=== PATIENT | male | born 1965 | race Caucasian/White ===

== ENCOUNTER → 2020-12-07 11:56 | Outpatient (BNVA) | payer OTHER, SELFPAY | PROVIDERS: Family Provider Nurse Practitioner Family; PCP Nurse Practitioner Family; Visit Provider Dermatology | DX: Z01.89 Encounter for other specified special examinations (principal) ==

== ENCOUNTER → 2021-05-31 09:26 | Outpatient (BNVA) | payer SELFPAY | PROVIDERS: Family Provider Nurse Practitioner Family; PCP Nurse Practitioner Family; Visit Provider Dermatology | DX: Z01.89 Encounter for other specified special examinations (principal) ==

== ENCOUNTER → 2021-08-29 12:08 | Outpatient (BNVA) | payer OTHER, SELFPAY | PROVIDERS: Family Provider Nurse Practitioner Family; PCP Nurse Practitioner Family; Visit Provider Nurse Practitioner Family | DX: M79.601 Pain in right arm (principal); M25.50 Pain in unspecified joint | CPT/HCPCS: 80053; 84550; 85651; 86038; 86140; 86200; 86431 ==

== ENCOUNTER 2021-08-30 06:13 | Outpatient (CLI) | payer OTHER, SELFPAY ==
--- NOTE | 2021-08-30 06:30 | USCV_ITS ---
Jose Christine Age: 56 Gender: M : 1965 Exam Date: 08/30/2021 06:27 Ordering Phys: Chioma Lazo GOAL UMPIRE Technologist: FELICIA Exam Location: [facility] [place] Indication: RUE PAIN HISTORY: Upper extremity pain. PROCEDURES: Venous duplex imaging was performed in only the right upper extremity. The following venous structures were evaluated: internal jugular vein, subclavian vein, axillary vein, and brachial veins. In addition, the basilic vein, cephalic vein, radial vein, and ulnar vein. Serial compression, augmentation maneuvers, and spectral Doppler flow evaluation were performed. FINDINGS: The veins of the right upper extremity are readily compressible with normal venous flow dynamics including spontaneous flow, respiratory phasic variation and augmentation. CONCLUSIONS No evidence of thrombus of the right upper extremity veins. Russ Zelaya MD (Electronically Signed) Final Date: 30 August 2021 09:34 S
== END 2021-08-30 06:14 | disposition home or self-care (01) ==
LOC: RAD 06:14
PROVIDERS: PCP Nurse Practitioner Family; Visit Provider Nurse Practitioner Family
DX: M79.601 Pain in right arm (principal)
CPT/HCPCS: 93971

== ENCOUNTER → 2021-09-06 08:45 | Outpatient (BNVA) | payer OTHER, SELFPAY | PROVIDERS: PCP Nurse Practitioner Family; Visit Provider Nurse Practitioner Family | DX: R74.8 Abnormal levels of other serum enzymes (principal); E11.9 Type 2 diabetes mellitus without complications; E78.5 Hyperlipidemia, unspecified | CPT/HCPCS: 80076; 82977; 83915; 86705; 86706; 86709; 86803; 87340 ==

== ENCOUNTER → 2021-09-23 11:36 | Outpatient (BNVA) | payer OTHER, SELFPAY | PROVIDERS: PCP Nurse Practitioner Family; Visit Provider Nurse Practitioner Family | DX: R74.8 Abnormal levels of other serum enzymes (principal); M54.50 Low back pain, unspecified; M54.6 Pain in thoracic spine; R07.81 Pleurodynia; M25.50 Pain in unspecified joint | CPT/HCPCS: 80053; 81000; 82607; 83735 ==

== ENCOUNTER 2021-09-26 07:43 | Outpatient (CLI) | payer OTHER, SELFPAY ==
--- NOTE | 2021-09-26 08:00 | US_ITS ---
WS: [id number] Complete ABDOMINAL ULTRASOUND HISTORY: R74.8 - Abnormal levels of other serum enzymes COMPARISON: None available. Liver: 15.7 cm in length. Liver is top normal size. Mild coarsened echotexture throughout. The veins and bile ducts are still visualized. There are a few areas of low attenuation throughout the liver ad jacent to the gallbladder. Largest geographic pattern of decreased attenuation measures 4.2 x 2.2 x 2 .3 cm. Typical location for focal fatty sparing. Portal Vein: Normal hepatopetal flow with monophasic waveform. Gallbladder: Normally distended with no gallstones, wall thickening or pericholecystic fluid. Gallbladder wall thickness: 0.3 cm. Pancreas: Normal size and echogenicity. CBD: 0.4 cm. Right kidney: 10.0 cm x 6.1 cm x 5.2 cm. Normal size. No hydronephrosis. Simple cyst inferior pole m easures 1.1 x 1.5 x 1.2 cm. No solid mass. Cortical thickness is normal. Left kidney: 10.8 cm x 5.4 cm x 5.3 cm. No mass, cortical thickening or hydronephrosis. Spleen: Normal size and echogenicity. Abdominal aorta and IVC are within normal limits. No ascites. US/US abdomen complete* [id number] IMPRESSION: 1. Geographic pattern of decreased attenuation within the central liver adjace nt to the hilum. Most likely this is focal fatty sparing in the liver with stea tosis. Due to the geographic pattern and extent of involvement consider follow- up liver CT with arterial and venous phases. 2. Hepatic steatosis. 3. Normal gallbladder. 4. Simple cyst inferior pole RIGHT kidney.
== END 2021-09-26 07:44 | disposition home or self-care (01) ==
LOC: RAD 07:44
PROVIDERS: PCP Nurse Practitioner Family; Visit Provider Nurse Practitioner Family
DX: R74.8 Abnormal levels of other serum enzymes (principal); N28.1 Cyst of kidney, acquired; K76.0 Fatty (change of) liver, not elsewhere classified
CPT/HCPCS: 76700

== ENCOUNTER 2021-10-28 08:17 | Outpatient (CLI) | payer OTHER, SELFPAY ==
--- NOTE | 2021-10-28 08:30 | CT_ITS ---
WS: [id number] CT ABDOMEN PELVIS TECHNIQUE: Contrast-enhanced CT of the abdomen and pelvis with coronal and sagittal reformatted image s. CLINICAL INFORMATION: R74.8 - Abnormal levels of other serum enzymes COMPARISON: Ultrasound September 26, 2021 DLP: 4295.[address] scans at [facility] use at least one of these dose optimization techniques: automated e xposure control; mA and/or kV adjustment per patient size (includes targeted exams where dose is matc hed to clinical indication); or iterative reconstruction. FINDINGS: Diffuse fatty infiltration of the liver. Normal portal vein and splenic vein. No suspicious lesions t o correspond to the suspected area of focal fatty sparing seen on the prior ultrasound. Normal portal vein and splenic vein. Lung bases are well aerated. Normal spleen. Normal pancreatic parenchymal enh ancement. Adrenal glands are normal. Normal renal parenchymal enhancement. No hydronephrosis. Small b ilateral renal cysts. Proximal celiac and SMA appear patent. Normal caliber abdominal aorta. Small fa t-containing umbilical hernia. Urine distended bladder. No evidence of high-grade small or large bowel obstruction. Normal lumbar sp ine. CT/CT abdomen pelvis w con* [id number] IMPRESSION: 1. Diffuse fatty infiltration of the liver. No focal hepatic lesions to corres pond to the ultrasound findings. 2. Normal portal vein and splenic vein. 3. No hydronephrosis in either kidney. Normal renal parenchymal enhancement. S mall bilateral renal cysts. 4. Small fat-containing umbilical hernia.
[2021-10-28] MEDS: iohexol 300 mg/mL 50 mL Btl IV (12:39)
== END 2021-10-28 08:18 | disposition home or self-care (01) ==
LOC: RAD 08:23
PROVIDERS: PCP Nurse Practitioner Family; Visit Provider Nurse Practitioner Family
DX: R93.5 Abnormal findings on diagnostic imaging of other abdominal regions, including retroperitoneum (principal); R74.8 Abnormal levels of other serum enzymes; N28.1 Cyst of kidney, acquired; K42.9 Umbilical hernia without obstruction or gangrene; K76.0 Fatty (change of) liver, not elsewhere classified
CPT/HCPCS: 74177; 82607

== ENCOUNTER → 2022-02-01 09:42 | Outpatient (BNVA) | payer OTHER, SELFPAY | PROVIDERS: PCP Nurse Practitioner Family; Visit Provider Nurse Practitioner Family | DX: E78.5 Hyperlipidemia, unspecified (principal); E11.9 Type 2 diabetes mellitus without complications | CPT/HCPCS: 80053; 80061; 82043; 82607; 83036; 84443; 85025; G0103 ==

== ENCOUNTER → 2022-08-29 08:46 | Outpatient (BNVA) | payer OTHER, SELFPAY | PROVIDERS: PCP Nurse Practitioner Family; Visit Provider Nurse Practitioner Family | DX: Z01.89 Encounter for other specified special examinations (principal) ==

== ENCOUNTER → 2022-09-04 12:08 | Outpatient (BNVA) | payer OTHER, SELFPAY | PROVIDERS: PCP Nurse Practitioner Family; Visit Provider Nurse Practitioner Family | DX: E53.8 Deficiency of other specified B group vitamins (principal) | CPT/HCPCS: 82607; 82746 ==

== ENCOUNTER 2022-11-08 05:53 | Day surgery (SDC) | payer OTHER, SELFPAY ==
[2022-11-06 08:55] VITALS: BMI 29.9
[2022-11-08 06:05] VITALS: BP 118/91; PULSE 78; RESP 16; TEMP 36.4; O2SAT 97
[2022-11-08] MEDS: sodium chloride 0.9% 1,000 ML 30 ML IV (06:16)
[2022-11-08 06:20] LABS: Glucose Point of Care 143 mg/dL (70-110)
--- NOTE | 2022-11-08 06:48 | P.ANESASSM_ITS ---
Pre-Anesthetic Assessment Height/Weight: Height 1.8 m Weight 97.522 kg Temp Pulse Resp BP Pulse Ox O2 Del Method 97.6 F 78 16 118/91 97 Room Air 11/08/22 06:05 11/08/22 06:05 11/08/22 06:05 11/08/22 06:05 11/08/22 06:05 11/08/22 06:05 Preop Diagnosis: screening Operation Date: 11/08/22 07:00 Proposed Procedures p [id number] Colon Z12.11(Not Applicable) - Reynaldo Sigala DO Familial anesthetic complications: never had anesthetic, adopted unsure of family history. Was Beta Lauren taken within 24 hours: N/A Was Clonidine taken within 24 hours: N/A Last intake: Intake Last Liquid Date 11/07/22 Last Liquid Time 22:00 Last Solid Date 11/06/22 Last Solid Time 16:00 Social No alcohol and No tobacco Exam alert, oriented x 3, clear to auscultation bilaterally and regular rate & rhythm Airway Submandibular: within normal limits Cervical ROM: within normal limits Mallampati: Class I Dentition: full Pulmonary None reported CV/HEM Hypertension None reported Hepatic None reported GI None reported Metabolic Diabetes Mellitus (metformin) and Hyperlipidemia [facility] [place] None reported Neuropsych None reported Anesthetic Plan ASA status: 2 Medications/Allergies Home Medications Medication Instructions Recorded Confirmed Last Taken Type blood sugar diagnostic (Blood #100 ea 06/06/21 10/04/22 Unknown Rx Glucose Test strips) blood-glucose meter (Blood Glucose #1 ea 06/06/21 10/04/22 Unknown Rx Monitoring kit) lancets 33 gauge (BD Ultra Fine #100 ea 06/06/21 10/04/22 Unknown Rx Lancets) atorvastatin 20 mg tablet 20 mg PO DAILY #90 tabs 09/04/22 11/08/22 11/07/22 Rx cyanocobalamin (vitamin B-12) See Rx Instructions .Route 09/25/22 11/06/22 10/15/22 Rx 1,000 mcg/mL injection solution .COMPLEX #1 mL aspirin 81 mg tablet,delayed 81 mg PO DAILY 11/06/22 11/06/22 11/06/22 History release dapagliflozin 10 mg tablet 10 mg PO DAILY 11/06/22 11/08/22 11/07/22 History (Farxiga) metformin 500 mg tablet 500 mg PO BID 11/06/22 11/08/22 11/07/22 History Allergies Allergy/AdvReac Type Severity Reaction Status Date / Time No Known Allergies Allergy Verified 11/06/22 08:49 Current Medications Generic Name Dose Route Start Last Admin Trade Name Freq PRN Reason Stop Dose Admin Sodium Chloride 1,000 mls @ 30 mls/hr 11/08/22 06:00 11/08/22 06:16 Sodium Chloride 0.9% IV 11/09/22 05:59 30 mls/hr .Q24H YULIA Administration PFSH Anesthesia Medical History Diabetes mellitus Fatty liver Hyperlipidemia Surgical History No pertinent past surgical history Family History Other Unknown family medical history Social History Smoking and tobacco status: never smoked Second hand smoke exposure: No Alcohol intake: never Substance/Drug Use: never Caregiver/support person: Yes Lives independently: Yes Household members: spouse and children Marital status: service: No Current occupational status: retired Current gender identity: Male Special toan needs: No Agree to transfusion: Yes Data Anesthesia Cardiac Studies: No Data to Display
--- NOTE | 2022-11-08 06:59 | PM.HP ---
Providers/Chief Complaint Primary Care Provider: REHANA Meza Chief Complaint: Z12.11 History of Present Illness Jose Christine is a 57 year old male here for a screening colonoscopy Medications/Allergies Home Medications Medication Instructions Recorded Confirmed Last Taken Type blood sugar diagnostic (Blood #100 ea 06/06/21 10/04/22 Unknown Rx Glucose Test strips) blood-glucose meter (Blood Glucose #1 ea 06/06/21 10/04/22 Unknown Rx Monitoring kit) lancets 33 gauge (BD Ultra Fine #100 ea 06/06/21 10/04/22 Unknown Rx Lancets) atorvastatin 20 mg tablet 20 mg PO DAILY #90 tabs 09/04/22 11/08/22 11/07/22 Rx cyanocobalamin (vitamin B-12) See Rx Instructions .Route 09/25/22 11/06/22 10/15/22 Rx 1,000 mcg/mL injection solution .COMPLEX #1 mL aspirin 81 mg tablet,delayed 81 mg PO DAILY 11/06/22 11/06/22 11/06/22 History release dapagliflozin 10 mg tablet 10 mg PO DAILY 11/06/22 11/08/22 11/07/22 History (Farxiga) metformin 500 mg tablet 500 mg PO BID 11/06/22 11/08/22 11/07/22 History Allergies Allergy/AdvReac Type Severity Reaction Status Date / Time No Known Allergies Allergy Verified 11/06/22 08:49 PFSH Acute PFSH: Medical History Diabetes mellitus Fatty liver Hyperlipidemia Surgical History No pertinent past surgical history Family History Other Unknown family medical history Social History Smoking and tobacco status: never smoked Second hand smoke exposure: No Alcohol intake: never Substance/Drug Use: never Caregiver/support person: Yes Lives independently: Yes Household members: spouse and children Marital status: service: No Current occupational status: retired Current gender identity: Male Special toan needs: No Agree to transfusion: Yes Vitals/I&O/Wt Last Vital Signs Temp 97.6 F 11/08/22 06:05 Pulse 78 11/08/22 06:05 Resp 16 11/08/22 06:05 BP 118/91 11/08/22 06:05 Pulse Ox 97 11/08/22 06:05 O2 Del Method Room Air 11/08/22 06:05 Weight last 48 hrs Weight 215 lb A&P Assessment and plan (1) Screening for colon cancer: Plan Colonoscopy Attestations Medical Necessity Statement*: Home Coding Level of Care Code Acute Code for Chg Fwd Diagnoses Screening for colon cancer Z12.11
[2022-11-08 07:21] VITALS: BP 114/73; PULSE 78; RESP 16; TEMP 36.1; O2SAT 94
[2022-11-08 07:36] VITALS: BP 115/76; PULSE 70; RESP 16; O2SAT 94
--- NOTE | 2022-11-08 14:17 | ANE.PACU2 ---
Inpatient post-anesthesia follow up: Airway intact: Yes Vital signs: Temperature 97 F Pulse Rate 70 Respiratory Rate 16 Blood Pressure 115/76 Pulse Oximetry 94 Oxygen Delivery Me thod Room Air Oxygen Flow Rate Fraction of Inspir ed Oxygen Hydration adequate: Yes Nausea and vomiting: No Pain level: 2 Mental status: Baseline
== END 2022-11-08 07:45 | disposition home or self-care (01) ==
PROVIDERS: PCP Nurse Practitioner Family; Visit Provider Surgery
PROC: 0DJD8ZZ Inspection of Lower Intestinal Tract, Via Natural or Artificial Opening Endoscopic (ICD-10-PCS; CPT 45378; principal; 2022-11-08 07:00)
DX: Z12.11 Encounter for screening for malignant neoplasm of colon (principal); K57.30 Diverticulosis of large intestine without perforation or abscess without bleeding; K64.8 Other hemorrhoids; I10 Essential (primary) hypertension; E11.9 Type 2 diabetes mellitus without complications; E78.5 Hyperlipidemia, unspecified; Z79.85 Long-term (current) use of injectable non-insulin antidiabetic drugs; Z79.82 Long term (current) use of aspirin
CPT/HCPCS: 36416; 45378; 82962; J2704; J7030

== ENCOUNTER → 2023-02-27 08:31 | Outpatient (BNVA) | payer OTHER, SELFPAY | PROVIDERS: PCP Nurse Practitioner Family; Visit Provider Dermatology | DX: Z01.89 Encounter for other specified special examinations (principal) ==

== ENCOUNTER → 2023-08-28 08:30 | Outpatient (BNVA) | payer SELFPAY | PROVIDERS: PCP Nurse Practitioner Family; Visit Provider Nurse Practitioner Family | DX: Z01.89 Encounter for other specified special examinations (principal) ==

== ENCOUNTER → 2025-03-23 11:05 | Outpatient (BNVA) | payer OTHER, SELFPAY | PROVIDERS: PCP Nurse Practitioner Family; Visit Provider Nurse Practitioner Family | DX: E53.8 Deficiency of other specified B group vitamins (principal) | CPT/HCPCS: 82607 ==